=== PATIENT | male | born 1950 | race Hispanic/Latino ===

== ENCOUNTER 2017-01-07 08:38 | Day surgery (SDC) | payer MEDICARE ==
[2017-01-03 08:48] VITALS: BMI 28.5
[2017-01-07 09:07] LABS: HEMATOCRIT 46.4 % (42.0-52.0); MEAN CORPUSCULAR HEMOGLOBIN 32.1 pg (25.0-35.0); MEAN CORPUSCULAR HGB CONC 34.5 g/dl (31.0-37.0); MEAN PLATELET VOLUME 9.2 fl (7.0-11.0); RED CELL DISTRIBUTION WIDTH 13.5 % (11.5-14.5); WHITE BLOOD COUNT 5.6 10^3/ul (4.5-11.0)
[2017-01-07 09:16] LABS: INR 1.05 (0.93-1.08); PARTIAL THROMBOPLASTIN TIME 29.6 Seconds (23.7-30.8)
[2017-01-07 09:18] LABS: BLOOD UREA NITROGEN 18 mg/dL (7-21); CALCIUM 9.8 mg/dL (8.4-10.5); CARBON DIOXIDE 26 mmol/L (21-33); CHLORIDE 101 mmol/L (98-107); GFR AFRICAN-AMERICAN > 60; GLUCOSE,RANDOM 87 mg/dL (70-110); SODIUM 140 mmol/L (132-148)
[2017-01-07] MEDS ORDERED: Midazolam 2 MG/2 ML VIAL ONE (10:19)
[2017-01-07] MEDS ORDERED: Propofol 10 mg/ml Inj (20 ML) ONE (10:19)
[2017-01-07 12:25] VITALS: BP 108/66; RESP 16; TEMP 97.8
[2017-01-07 12:26] VITALS: PULSE 79; O2SAT 96
--- NOTE | 2017-01-16 06:51 | HP ---
I examined the patient after the endoscopic procedure performed for evaluation of a previous cecal ulcer noted on colonoscopy several months ago. The patient is an ASA 2. After the procedure, which went well without difficulty, the patient was evaluated in PACU and found to be mildly lethargic. PHYSICAL EXAMINATION: VITAL SIGNS: Stable. LUNGS: Clear. HEART: Exhibited a regular rhythm. ABDOMEN: Soft, nontender. After the patient awoke from his procedure related anesthesia, the procedure was discussed including results. I handed the patient a copy of his endoscopy report. The patient was subsequently transferred to same day surgery, had a small snack and was subsequently discharged. Overall, the patient did well during his patient experience at [facility]. The patient will be followed up in the office. Jez Morgan DO, PhD cc: [id number] TT: 01/16/2017 06:50:15 anne-marie BARLOW
== END 2017-01-07 12:13 | disposition home or self-care (01) ==
LOC: ENDO 08:38
PROVIDERS: ATTEND Internal Medicine Gastroenterology
DX: K63.3 Ulcer of intestine (principal); D12.0 Benign neoplasm of cecum; K64.8 Other hemorrhoids
CPT/HCPCS: 36415; 45384; 80048; 85027; 85610; 85730; 88305; J2250; J2704; J7040